=== PATIENT | male | born 1965 | race Caucasian/White ===

== ENCOUNTER → 2021-12-15 | Outpatient (CLI) | payer MEDICARE ==
--- NOTE | 2021-12-15 17:30 | RAD ---
EXAM: XR CERVICAL SPINE 4-5V, XR LUMBAR SPINE 4+V, XR THORACIC SPINE 3VIEWS 12/15/2021 12:49 PM CLINICAL INDICATION: Fell in September. Still having back pain COMPARISON: None FINDINGS: Cervical spine: 5 views were obtained. There is no acute fracture. Alignment is normal. Mild disc spa ce narrowing. No significant facet arthrosis. There is and uncovertebral joint proliferation and prob able foraminal narrowing at several levels. Prevertebral soft tissues normal. Thoracic spine: 3 views were obtained. There is very mild rightward curvature of the thoracic spine T 4-T5 and leftward curvature of the thoracolumbar spine centered at L1. Possible mild compression frac ture T4 with 20 percent height loss. No obvious retropulsion of cortex. No definite other fracture id entified. Lumbar spine: 5 views were obtained. Mild leftward curvature of the thoracolumbar spine centered at L 1. There is are 5 nonrib-bearing lumbar vertebral bodies. No acute fracture or listhesis. Mild disc s pace narrowing, greatest at L5-S1. No significant facet arthrosis. IMPRESSION: 1. Possible mild T4 compression fracture with approximately [address] or MRI could b e obtained to further evaluate if needed. 2. No acute osseous abnormality of the cervical or lumbar spine. Electronically signed by: Noelle Cyr MD (12/15/2021 5:28 PM) [id number]
== END ==
LOC: RAD 12:31
PROVIDERS: ATTEND Physician Assistant Medical
DX: M48.07 Spinal stenosis, lumbosacral region (principal); M62.81 Muscle weakness (generalized); R26.89 Other abnormalities of gait and mobility; M54.2 Cervicalgia; W19.XXXA Unspecified fall, initial encounter
CPT/HCPCS: 72050; 72072; 72110